=== PATIENT | female | born 1975 | race Caucasian/White ===

== ENCOUNTER → 2020-09-14 10:36 | Outpatient (BNVA) | payer MEDICARE, SELFPAY | PROVIDERS: Visit Provider Orthopaedic Surgery ==

== ENCOUNTER 2020-12-15 10:29 | Outpatient (REF) | payer MEDICARE, SELFPAY ==
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
== END 2020-12-15 10:30 | disposition home or self-care (01) ==
LOC: HO.NEURO 10:29
PROVIDERS: PCP Internal Medicine; Visit Provider Orthopaedic Surgery
DX: R20.0 Anesthesia of skin (principal); R20.2 Paresthesia of skin
CPT/HCPCS: 95885; 95910

== ENCOUNTER 2022-04-29 21:23 | Emergency (ER) | payer MEDICARE, OTHER, SELFPAY ==
[2022-04-29 21:32] VITALS: BP 149/97; PULSE 75; RESP 18; TEMP 36.3; O2SAT 96; BMI 21.6
[2022-04-30 00:07] VITALS: BP 128/78; PULSE 81; RESP 18; O2SAT 100
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
--- NOTE | 2022-04-30 03:45 | PC.NURSE ---
Upon rounding notice pt no longer in room and left against medical advice. provider aware.
== END 2022-04-30 03:47 | disposition left against medical advice (07) ==
PROVIDERS: Emergency Provider Emergency Medicine; PCP Internal Medicine
DX: M54.50 Low back pain, unspecified (principal); M53.3 Sacrococcygeal disorders, not elsewhere classified; F41.1 Generalized anxiety disorder; F43.0 Acute stress reaction; F33.1 Major depressive disorder, recurrent, moderate; Z79.899 Other long term (current) drug therapy
CPT/HCPCS: 72220; 99283